=== PATIENT | male | born 1980 | race Two or more races ===

== ENCOUNTER 2017-09-05 05:52 | Day surgery (SDC) | payer OTHER ==
[~2017-09-05 05:52] MED LIST: CIPRO500 MG/5 M PO; METRONIDAZOLE500 MG PO
[2017-09-05] MEDS ORDERED: COLACE100 MG PO (08:08)
[2017-09-05] MEDS ORDERED: PERCOCET 5-3251 EACH PO (08:08)
== END 2017-09-05 13:55 | disposition home or self-care (01) ==
LOC: CIR.AMB 05:52
DX: K60.1 Chronic anal fissure (principal); K62.89 Other specified diseases of anus and rectum

== ENCOUNTER 2018-06-08 06:40 | Day surgery (SDC) | payer OTHER ==
[~2018-06-08 06:40] MED LIST changes: +COLACE100 MG PO; +PERCOCET 5-3251 EACH PO
== END 2018-06-08 10:45 | disposition home or self-care (01) ==
LOC: AMB-ENDOS 06:40 → CIR.AMB 09:30 → AMB-ENDOS 10:45
DX: K60.1 Chronic anal fissure (principal); K62.89 Other specified diseases of anus and rectum; K64.8 Other hemorrhoids; K64.0 First degree hemorrhoids